=== PATIENT | male | born 1940 | race Caucasian/White ===

== ENCOUNTER 2018-08-02 18:33 | Observation (INO) ==
[2018-08-02] MEDS ORDERED: NITROGLYCERIN 2% OINTMENT 30GM TUBE EXT STA (18:47)
[2018-08-02] MEDS ORDERED: ASPIRIN CHEW 324 MG PO STA (18:47)
--- NOTE | 2018-08-02 18:57 | Emergency Department Note ---
Entered by Flory Ness acting as a scribe for Zi Soliman MD History of Present Illness General Chief complaint: Cardiac Assessment Stated complaint: CHEST PRESSURE, CARDIAC HX, DIABETIC Time Seen by Provider: 08/02/18 18:39 Source: patient and family () History of Present Illness Onset (ago): hour(s) (several ) Location: chest Radiation: non-radiation Pain Consistency: + other (worsening) Maximum Pain Intensity: 2 Current Pain Intensity: 1 Associated symptoms: + cough (productive ) and + shortness of breath; no diaphoresis and no nausea/vomiting Treatments prior to arrival: none The patient is a 78 year old male who presents to the Emergency Room with complaints of worsening chest pain that began several hours prior to arrival. He denies radiation of his pain, and rates his pain at a 1/10. The patient states that he is short of breath, but states that he is short of breath at baseline. Per the patient's , the patient has a productive cough at baseline, but states that this has been worse over the past several days. The patient denies nausea and sweating. The patient denies treatments prior to arrival. He states that he has a heart history and states that he has had 5 stents placed previously. The patient states that he takes aspirin regularly. Home Medications Home Medications Medication Instructions Recorded Confirmed Type Lactobacillus acidophilus 0 mg PO DAILY 08/02/18 08/02/18 History [Acidophilus] atorvastatin [Lipitor] 20 mg PO PM 08/02/18 08/02/18 History cefpodoxime 400 mg PO BID 08/02/18 08/02/18 History clopidogrel [Plavix] 75 mg PO DAILY 08/02/18 08/02/18 History famotidine 20 mg PO BID 08/02/18 08/02/18 History metoprolol succinate 50 mg PO DAILY 08/02/18 08/02/18 History metronidazole 500 mg PO TID 08/02/18 08/02/18 History multivitamin 1 tab PO QAM 08/02/18 08/02/18 History omega-3 acid ethyl esters [Lovaza] 1 cap PO BID 08/02/18 08/02/18 History ramipril 2.5 mg PO DAILY 08/02/18 08/02/18 History repaglinide 1 mg PO QAM 08/02/18 08/02/18 History Allergies Allergy/AdvReac Type Severity Reaction Status Date / Time No Known Allergies Allergy Unverified 08/02/18 19:46 Past Med/Surg History Medical History Diabetes (Chronic) Social History Feels Safe at Home: Yes Smoking Status: Former smoker Review of Systems See HPI for pertinent positives & negatives. and A total of 10 systems reviewed and were otherwise negative Physical Exam Vital Signs Vital Signs - 24 hr 08/02/18 18:37 08/02/18 18:45 08/02/18 18:50 Temperature 36.5 C Temperature Source Oral Sepsis Recent Fever Within 48 Hours No Sepsis Action Taken by Nursing No Action Required Pulse Rate 87 Pulse Rate [Right Finger] Pulse Rhythm Regular Pulse Strength Normal Respiratory Rate 20 Respiratory Effort / Characteristics Non-Labored Non-Labored Respiratory Depth Normal Normal Respiratory Pattern Regular Blood Pressure 132/85 Blood Pressure [Left Arm] Blood Pressure Mean 100 Blood Pressure Mean [Left Arm] Blood Pressure Position Sitting Blood Pressure Position [Left Arm] Pulse Oximetry 79 L 94 Oxygen Delivery Method Room Air Nasal Cannula Nasal Cannula Oxygen Flow Rate 4 3 08/02/18 19:12 08/02/18 19:13 Temperature Temperature Source Sepsis Recent Fever Within 48 Hours Sepsis Action Taken by Nursing Pulse Rate 71 Pulse Rate [Right Finger] 72 Pulse Rhythm Pulse Strength Respiratory Rate 18 18 Respiratory Effort / Characteristics Respiratory Depth Respiratory Pattern Blood Pressure 137/87 Blood Pressure [Left Arm] 137/87 Blood Pressure Mean 103 Blood Pressure Mean [Left Arm] 103 Blood Pressure Position Blood Pressure Position [Left Arm] Lying Pulse Oximetry 95 95 Oxygen Delivery Method Nasal Cannula Nasal Cannula Oxygen Flow Rate 3 3 GENERAL: Patient is in no acute distress. HEENT: No acute trauma, normocephalic atraumatic, mucous membranes moist, no nasal congestion, no scleral icterus. NECK: No stridor, no adenopathy, no meningismus, trachea is midline. LUNGS: Clear to auscultation bilaterally, no wheeze, no rhonchi, breath sounds equal. HEART: Without murmurs gallops or rubs, regular rate and rhythm. ABDOMEN: Soft, nontender, bowel sounds positive, no hernias, no peritonitis. EXTREMITIES: No cyanosis or edema, full range of motion of all the joints without pain or difficulty, no signs for acute trauma. NEUROLOGIC: Oriented x 3, no acute motor or sensory deficits, no focal weakness. SKIN: No rash, no jaundice, no diaphoresis. Course 1839: The patient was evaluated in room A9B, and a complete history and physical examination were performed. 1853: The patient's blood sugar is 88. 2000: I updated the patient and his . 2007: I discussed the case with Dr. Chaney Hospitalist who accepts the patient for further evaluation. Consultations Consultation #1: I discussed the case with Dr. [facility] who accepts the patient for further evaluation. Time: 20:08 Administered Medications Discontinued Medications Aspirin (Aspirin) 324 mg PO NOW STA Stop: 08/02/18 18:48 Last Admin: 08/02/18 19:02 Dose: 324 mg Documented by: [id number] Nitroglycerin (Nitro-Bid 2%) 1 inch EXT NOW STA Stop: 08/02/18 18:48 Last Admin: 08/02/18 19:02 Dose: 1 inch Documented by: [id number] Medical Decision Making Differential Diagnosis Differential diagnoses include angina, OH, CHF, pneumonia, bronchitis, reflux, anemia, electrolyte imbalance, aortic dissection, PE, and others were considered. Medical Records Attestation: I reviewed the patient's medical records. Home Medications Current Medication List: was personally reviewed by me Laboratory Data Attestation: I reviewed the patient's lab results. Result diagrams: 08/02/18 18:52 08/02/18 18:52 Lab Results 08/02/18 08/02/18 08/02/18 Range/Units 18:50 18:52 18:52 WBC 7.61 (4.8-10.8) K/uL RBC 4.83 (4.7-6.1) M/uL Hgb 16.6 (14.0-18.0) g/dL Hct 47.6 (42-52) % MCV 98.6 (80-100) fL MCH 34.4 H (25-34) pg MCHC 34.9 (32-36) g/dL RDW Std Deviation 48.6 H (36.4-46.3) fL RDW Coeff of Nat 13.5 (11.5-14.5) % Plt Count 168 (130-400) K/uL MPV 10.6 H (7.4-10.4) fL Immature Gran % (Auto) 0.3 % Neut % (Auto) 53.8 % Lymph % (Auto) 31.1 % Dewitt % (Auto) 12.5 % Eos % (Auto) 1.8 % Baso % (Auto) 0.5 % Immature Gran # (Auto) 0.02 (0.00-0.02) K/uL Neut # (Auto) 4.09 (1.4-6.5) K/uL Lymph # (Auto) 2.37 (1.2-3.4) K/uL Dewitt # (Auto) 0.95 H (0.11-0.59) K/uL Eos # (Auto) 0.14 (0-0.5) K/uL Baso # (Auto) 0.04 (0-0.2) K/uL PT (9.0-12.0) Seconds INR (0.9-1.1) APTT (21.0-31.0) Seconds PTT Ratio Sodium 140 (136-145) mmol/L Potassium 3.8 (3.5-5.1) mmol/L Chloride 106 (98-107) mmol/L Carbon Dioxide 28 (21-32) mmol/L Anion Gap 6.0 (3-11) BUN 10 (7-18) mg/dl Creatinine 0.67 (0.6-1.4) mg/dl Est Cr Clr Drug Dosing 92.7 ml/min Est GFR ( Amer) 106.7 Est GFR (Non-Af Amer) 92.0 BUN/Creatinine Ratio 14.6 (10-20) Glucose 93 (70-99) mg/dl POC Glucose 88 (70-99) Calcium 9.5 (8.5-10.1) mg/dl Magnesium 1.9 (1.8-2.4) mg/dl Total Bilirubin 0.9 (0.2-1) mg/dl AST 29 (15-37) U/L ALT 35 (12-78) U/L Alkaline Phosphatase 74 (45-117) U/L Troponin I < 0.015 (0-0.045) ng/ml Total Protein 7.8 (6.4-8.2) gm/dl Albumin 3.7 (3.4-5.0) gm/dl Globulin 4.1 H (2.5-4.0) gm/dl Albumin/Globulin Ratio 0.9 (0.9-2) Lipase 104 (73-393) U/L Specimen Hemolysis 08/02/18 Range/Units 18:52 WBC (4.8-10.8) K/uL RBC (4.7-6.1) M/uL Hgb (14.0-18.0) g/dL Hct (42-52) % MCV (80-100) fL MCH (25-34) pg MCHC (32-36) g/dL RDW Std Deviation (36.4-46.3) fL RDW Coeff of Nat (11.5-14.5) % Plt Count (130-400) K/uL MPV (7.4-10.4) fL Immature Gran % (Auto) % Neut % (Auto) % Lymph % (Auto) % Dewitt % (Auto) % Eos % (Auto) % Baso % (Auto) % Immature Gran # (Auto) (0.00-0.02) K/uL Neut # (Auto) (1.4-6.5) K/uL Lymph # (Auto) (1.2-3.4) K/uL Dewitt # (Auto) (0.11-0.59) K/uL Eos # (Auto) (0-0.5) K/uL Baso # (Auto) (0-0.2) K/uL PT 11.6 (9.0-12.0) Seconds INR 1.1 (0.9-1.1) APTT 25.9 (21.0-31.0) Seconds PTT Ratio 1.0 Sodium (136-145) mmol/L Potassium (3.5-5.1) mmol/L Chloride (98-107) mmol/L Carbon Dioxide (21-32) mmol/L Anion Gap (3-11) BUN (7-18) mg/dl Creatinine (0.6-1.4) mg/dl Est Cr Clr Drug Dosing ml/min Est GFR ( Amer) Est GFR (Non-Af Amer) BUN/Creatinine Ratio (10-20) Glucose (70-99) mg/dl POC Glucose (70-99) Calcium (8.5-10.1) mg/dl Magnesium (1.8-2.4) mg/dl Total Bilirubin (0.2-1) mg/dl AST (15-37) U/L ALT (12-78) U/L Alkaline Phosphatase (45-117) U/L Troponin I (0-0.045) ng/ml Total Protein (6.4-8.2) gm/dl Albumin (3.4-5.0) gm/dl Globulin (2.5-4.0) gm/dl Albumin/Globulin Ratio (0.9-2) Lipase (73-393) U/L Specimen Hemolysis Imaging Data Radiologist's Impression: Radiology results as stated below per my review and th e radiologist's interpretation: XR chest 1V portable HISTORY: Atypical Chest Pain COMPARISON: None. FINDINGS: The lungs are hyperexpanded with mild apical predominant emphysematous changes. No pneumothorax. No pleural effusions. The heart is normal in size. A coronary artery stent is noted. Increased markings at the lung bases likely represent vascular crowding from the emphysema. No focal lung consolidations to suggest pneumonia. No evidence for pulmonary edema. IMPRESSION: No acute process within the chest. Emphysema. Electronically signed by: Braden López M.D. 08/02/2018 7:22 PM ECG Data Attestation: I personally reviewed and interpreted this ECG as follows: Indication: chest pain Rate (beats per minute): 75 Rhythm: normal sinus Findings: no PVC and no ST elevation Blood Pressure Blood Pressure Findings: Normal blood pressure MDM Narrative There is no leukocytosis or concerning anemia. No significant electrolyte abnormality or kidney failure. No coagulopathy. No evidence for hepatitis or pancreatitis. EKG shows a sinus rhythm, no acute ischemia. Cardiac enzyme testing x1 is not consistent with acute cardiac injury. Chest film does not show mediastinal widening, no pneumonia or pneumothorax. Patient arrived hypoxic. He was placed on oxygen. He received oral aspirin and nitroglycerin paste. He is now completely pain-free with an adequate O2 saturation. I am concerned about angina as a cause for his presentation. His hypoxia may have triggered the angina. I do think further cardiac work-up is warranted. I did speak with case management. I talked to the patient. The on-call hospitalist was consulted. Impression & Plan Hypoxia, Precordial chest pain Discharge Plan Visit Data Chief Complaint: Cardiac Assessment Stated Complaint: CHEST PRESSURE, CARDIAC HX, DIABETIC ED Provider: Zi Soliman Discharge Problem: Hypoxia, Precordial chest pain Patient Disposition: Being Evaluated by Hospitalist Forms Stand Alone Forms: My [facility] Prescriptions Prescriptions: No Action multivitamin Tablet 1 tab PO QAM RF: 0 atorvastatin [Lipitor] 20 mg Tablet 20 mg PO PM RF: 0 cefpodoxime 200 mg Tablet 400 mg PO BID RF: 0 metoprolol succinate 50 mg Tablet Extended Release 24 Hr 50 mg PO DAILY RF: 0 metronidazole 500 mg Tablet 500 mg PO TID RF: 0 clopidogrel [Plavix] 75 mg Tablet 75 mg PO DAILY RF: 0 famotidine 20 mg Tablet 20 mg PO BID RF: 0 ramipril 2.5 mg Capsule 2.5 mg PO DAILY RF: 0 Lactobacillus acidophilus [Acidophilus] Capsule PO DAILY RF: 0 repaglinide 1 mg Tablet 1 mg PO QAM RF: 0 omega-3 acid ethyl esters [Lovaza] 1 gram Capsule 1 cap PO BID RF: 0 Referrals Referrals: MAEGAN THOMAS [Other] The scribe's documentation has been prepared under my direction and personally reviewed by me in its entirety. I confirm that the note above accurately reflects all work, treatment, procedures, and medical decision making performed by me.
[2018-08-02 19:08] LABS: Basophils # (auto) 0.04 K/uL (0-0.2); Basophils % (auto) 0.5 %; Eosinophils # (auto) 0.14 K/uL (0-0.5); Eosinophils % (auto) 1.8 %; Hematocrit (blood only) 47.6 % (42-52); Hemoglobin 16.6 g/dL (14.0-18.0); Immature Granulocytes # (auto) 0.02 K/uL (0.00-0.02); Immature Granulocytes % (auto) 0.3 %; Lymphocytes # (auto) 2.37 K/uL (1.2-3.4); Lymphocytes % (auto) 31.1 %; Mean Corpuscular Hgb Conc 34.9 g/dL (32-36); Mean Corpuscular Volume 98.6 fL (80-100); Mean Platelet Volume 10.6 fL (7.4-10.4); Monocytes # (auto) 0.95 K/uL (0.11-0.59); Monocytes % (auto) 12.5 %; Neutrophils # (auto) 4.09 K/uL (1.4-6.5); Neutrophils % (auto) 53.8 %; Platelet Count 168 K/uL (130-400); RDW Coefficient of Variation 13.5 % (11.5-14.5); RDW Standard Deviation 48.6 fL (36.4-46.3); Red Blood Count 4.83 M/uL (4.7-6.1); White Blood Count 7.61 K/uL (4.8-10.8)
--- NOTE | 2018-08-02 19:24 | XRay Report ---
XR chest 1V portable HISTORY: Atypical Chest Pain COMPARISON: None. FINDINGS: The lungs are hyperexpanded with mild apical predominant emphysematous changes. No pneumoth orax. No pleural effusions. The heart is normal in size. A coronary artery stent is noted. Increased markings at the lung bases likely represent vascular crowding from the emphysema. No focal lung conso lidations to suggest pneumonia. No evidence for pulmonary edema. IMPRESSION: No acute process within the chest. Emphysema. Electronically signed by: Braden López M.D. 08/02/2018 7:22 PM
[2018-08-02 19:25] LABS: INR 1.1 (0.9-1.1); Partial Thromboplastin Time 25.9 Seconds (21.0-31.0); Prothrombin Time 11.6 Seconds (9.0-12.0)
[2018-08-02 19:44] LABS: Alanine Aminotransferase 35 U/L (12-78); Albumin Globulin Ratio 0.9 (0.9-2); Albumin Level 3.7 gm/dl (3.4-5.0); Alkaline Phosphatase 74 U/L (45-117); Aspartate Aminotransferase 29 U/L (15-37); BUN Creatinine Ratio 14.6 (10-20); Bilirubin,Total 0.9 mg/dl (0.2-1); Blood Urea Nitrogen 10 mg/dl (7-18); Calcium 9.5 mg/dl (8.5-10.1); Carbon Dioxide 28 mmol/L (21-32); Chloride 106 mmol/L (98-107); Creatinine Clr Calc Pharmacy 92.7 ml/min; Est GFR (African American) 106.7; Globulin 4.1 gm/dl (2.5-4.0); Glucose 93 mg/dl (70-99); Magnesium 1.9 mg/dl (1.8-2.4); Potassium 3.8 mmol/L (3.5-5.1); Sodium 140 mmol/L (136-145); Total Protein 7.8 gm/dl (6.4-8.2); Troponin I < 0.015 ng/ml (0-0.045)
--- NOTE | 2018-08-02 21:56 | History & Physical Report ---
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 -Developed chest pain this afternoon while eating, found to be hypoxic at 79% upon arrival, pain resolved with supplemental O2 and nitro paste -History of multiple cardiac stents but disease has been well-controlled for past few years -Follows with cardiology regularly in [place] -Hypoxia likely contributing to chest pain -Initial troponin negative, EKG with NSR no acute ischemic change, CXR without acute process -Trend serial cardiac enzymes, check 2D echo, repeat EKG in am -Routine cardiology consult -NPO after midnight in case of stress test (2) Hypoxia: Initially 79% on room air, improved to 93% on 3L NC -History of requiring O2 in health care settings in the past, is not on home O2 -Likely to need 2 step prior to discharge home (3) CAD (coronary artery disease): H/o multiple stents -Continue aspirin, plavix, statin (4) HTN (hypertension): Normotensive. Continue home dose Toprol, Ramipril (5) Diabetes mellitus, type II: A1c unknown. Ordered for AM -Hold oral agent -SSI while in-patient -BSG AC HS (6) Abscess of liver: History of recurrent liver abscess for which he is taking Cefpodoxime and metronidazole -Afebrile, no leukocytosis, no GI symptoms -Continue home abx (7) GERD (gastroesophageal reflux disease): Continue H2 mana DVT Ppx: SQ Lovenox Code status: FULL per discussion with patient PCP: Maegan Bernstein ([place]) Dispo: Observation telemetry. Plan to return home once medically stable. Patient seen in collaboration with Dr. Galeano. Please see addendum. 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 Patient is from [place] and is visiting [place] so that his can attend a football seminar. While out to lunch today, patient took 2 bites of his salad and then developed central chest discomfort described as sharp and burning. Pain is intermittent and laste d less than a minute at a time and was associated with inability to catch his breath. states that he looked pale at this point in time as well. Patient thought that pain was due to gas pain but when it did not improve came to ED for further evaluation. Was found to be hypoxic at 79% on room air initially but improved to 93% on 3 L NC O2. Patient also given Nitropaste and chest pain resolved. Currently feeling much better. Denies any fever, chills, headache, lightheadedness, chest pain, palpitations, shortness of breath, nausea, vomiting, abdominal pain, dysuria, diarrhea, constipation or lower extremity swelling. Patient with history of CAD requiring multiple stents, but disease has been controlled for the last few years. Follows regularly with a legal billing clerk in [place] and is due for stress test and echo this coming November. Also has history of recurrent liver abscess for which he is taking Cefpodoxime and metronidazole. During 2016 rehab stay following hospitalization for initial liver abscess, patient was found to be hypoxic and required oxygen during stay. Since discharge, has wondered if patient has needed oxygen or not because he seems short of breath with exertion. Allergies Allergy/AdvReac Type Severity Reaction Status Date / Time No Known Allergies Allergy Unverified 08/02/18 19:46 Home Medications Home Medications Medication Instructions Recorded Confirmed Type Lactobacillus acidophilus 0 mg PO DAILY 08/02/18 08/02/18 History [Acidophilus] aspirin 81 mg PO DAILY 08/02/18 08/02/18 History atorvastatin [Lipitor] 20 mg PO PM 08/02/18 08/02/18 History cefpodoxime 400 mg PO BID 08/02/18 08/02/18 History clopidogrel [Plavix] 75 mg PO DAILY 08/02/18 08/02/18 History famotidine 20 mg PO BID 08/02/18 08/02/18 History metoprolol succinate 50 mg PO TIDM 08/02/18 08/02/18 History metronidazole 500 mg PO TID 08/02/18 08/02/18 History multivitamin 1 tab PO QAM 08/02/18 08/02/18 History omega-3 acid ethyl esters [Lovaza] 1 cap PO BID 08/02/18 08/02/18 History ramipril 2.5 mg PO DAILY 08/02/18 08/02/18 History repaglinide 1 mg PO QAM 08/02/18 08/02/18 History Past Med/Surg History Medical History GERD (gastroesophageal reflux disease) (Chronic) Abscess of liver (Chronic) Diabetes mellitus, type II (Chronic) CAD (coronary artery disease) (Chronic) HTN (hypertension) (Chronic) Surgical History History of coronary artery stent placement (Chronic) History of cholecystectomy (Chronic) Family History Other Diabetes Heart disease Social History Preferred Language: [place] Communication Ability: Effective 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 Physical Exam Physical Exam: General Appearance: WD/WN, no apparent distress, resting comfortably, becomes short of breath with exertion during exam Head: normocephalic, atraumatic Eyes: normal inspection, PERRL, EOMI ENT: hearing grossly normal, pharynx normal (moist mucous membranes) Neck: supple, no JVD, no adenopathy Respiratory/Chest: lungs clear to auscultation. No wheezes, rales or rhonci. No respiratory distress or accessory muscle use Cardiovascular: regular rate, rhythm, no murmur, normal peripheral pulses Abdomen/GI: normal bowel sounds, soft, non-tender to palpation Extremities/Musculoskelatal: normal inspection, no calf tenderness, normal capillary refill, no pedal edema Neurologic/Psych: alert, normal mood/affect, oriented x 3 Skin: normal color, warm/dry Results & Data Vital Signs (Past 12 Hours) Vital Signs Temp Pulse Pulse Resp BP BP Pulse Ox 08/02/18 20:47 93 05/16/19 20:46 93 08/02/18 20:20 74 16 125/84 93 08/02/18 19:13 72 18 137/87 95 08/02/18 19:12 71 18 137/87 95 08/02/18 18:45 94 08/02/18 18:37 36.5 C 87 20 132/85 79 L Laboratory Results Short CBC 08/02/18 Range/Units 18:52 WBC 7.61 (4.8-10.8) K/uL Hgb 16.6 (14.0-18.0) g/dL Hct 47.6 (42-52) % Plt Count 168 (130-400) K/uL BMP 08/02/18 18:52 Sodium 140 Potassium 3.8 Chloride 106 Carbon Dioxide 28 BUN 10 Creatinine 0.67 Glucose 93 Calcium 9.5 Cardiac Enzymes 08/02/18 Range/Units 18:52 Troponin I < 0.015 (0-0.045) ng/ml Liver Function 08/02/18 Range/Units 18:52 Total Bilirubin 0.9 (0.2-1) mg/dl AST 29 (15-37) U/L ALT 35 (12-78) U/L Alkaline Phosphatase 74 (45-117) U/L Albumin 3.7 (3.4-5.0) gm/dl Diagnostic Findings CXR: IMPRESSION: No acute process within the chest. Emphysema. Supervising Physician Co-Signing Physician Notes Care coordinated with Yuliya Aguero PA-C. Agree with above note. Patient seen and examined. Please refer to her notes for full details. Vital signs reviewed. Physical exam: General exam: Alert and oriented. Not in acute distress. CVS: S1 and S2 heard, regular rate and rhythm, no murmurs. RS: Clear to auscultation, no wheezing or crackles. ABD: Soft, bowel sounds present, nontender, no distention. CLAIMS ADJUDICATOR: Nonfocal. EXT: No edema, no erythema. Labs: Reviewed. Assessment and plan: 78M with hx of cad s/p stents, hx of tobacco abuse presents with chest pain and found to be hypoxic. Chest pain hx of Cad s/p stent improved with oxygen and nitro monitor in tele serial ce and echo npo after midnight cardio consult Hypoxia hx of smoking oxygen levels boderline as per patient- will order d dimer two step prior to discharge Other diagnosis and plan of care as per Yuliya Aguero PA-C. Diony gregg MD.
[2018-08-02] MEDS ORDERED: CARBOHYDRATES FOR HYPOGLYCEMIA PO PRN (23:32)
[2018-08-02] MEDS ORDERED: GLUCAGON FOR INJ 1 MG VIAL SQ PRN (23:32)
[2018-08-02] MEDS ORDERED: POLYETHYLENE (MIRALAX) 17 GM PACK PO PRN (23:32)
[2018-08-02] MEDS ORDERED: ONDANSETRON INJ 2 MG/ML 2 ML VIAL IV PRN (23:32)
[2018-08-02] MEDS ORDERED: DEXTROSE 50% 50 ML SYRINGE IV PRN (23:32)
[2018-08-02] MEDS ORDERED: GLUCOSE 10 TABS/TUBE PO PRN (23:32)
[2018-08-02] MEDS ORDERED: ACETAMINOPHEN 325 MG TAB PO PRN (23:32)
[2018-08-02] MEDS ORDERED: GLUCOSE 40% GEL 15 GM TUBE PO PRN (23:32)
[2018-08-03] MEDS: NITROGLYCERIN 2% OINTMENT 30GM TUBE EXT SCH ×2 (00:09→05:42)
[2018-08-03 01:02] LABS: Hematocrit (blood only) 43.6 % (42-52); Hemoglobin 15.7 g/dL (14.0-18.0); Mean Corpuscular Volume 97.1 fL (80-100); Platelet Count 164 K/uL (130-400); RDW Coefficient of Variation 13.4 % (11.5-14.5); RDW Standard Deviation 47.5 fL (36.4-46.3); Red Blood Count 4.49 M/uL (4.7-6.1); White Blood Count 7.92 K/uL (4.8-10.8)
[2018-08-03 01:22] LABS: BUN Creatinine Ratio 14.6 (10-20); Blood Urea Nitrogen 9 mg/dl (7-18); Carbon Dioxide 30 mmol/L (21-32); Chloride 105 mmol/L (98-107); Creatinine Clr Calc Pharmacy 93.3 ml/min; Est GFR (African American) 110.9; Est GFR (Non-African American) 95.7; Glucose 137 mg/dl (70-99); Sodium 138 mmol/L (136-145)
[2018-08-03 01:27] LABS: Chol HDL Ratio 2; Cholesterol 113 mg/dl (0-200); HDL Cholesterol 47 mg/dl; LDL Cholesterol Calculated 49 mg/dl; Triglycerides 85 mg/dl (0-150); Troponin I < 0.015 ng/ml (0-0.045); VLDL Cholesterol 17 mg/dl
[2018-08-03 06:19] LABS: Estimated Average Glucose 166 mg/dl; Hemoglobin A1C 7.4 % (4.5-5.6)
[2018-08-03] MEDS: METOPROLOL SUCC 50MG EXT REL TAB PO SCH ×2 (07:59→12:02)
[2018-08-03] MEDS: INSULIN ASPART 100 UNITS/ML 3 ML PEN SC SCH ×2 (08:00→13:13)
[2018-08-03] MEDS: metroNIDAZOLE 500 MG TAB PO SCH ×2 (08:00→12:37)
[2018-08-03] MEDS ORDERED: FAMOTIDINE 20 MG TAB PO SCH (09:00)
[2018-08-03] MEDS ORDERED: MULTIVITAMIN TAB PO SCH (09:00)
[2018-08-03] MEDS ORDERED: OMEGA-3 (PURIFIED FISH OIL) 1 GM CAP PO SCH (09:00)
[2018-08-03] MEDS ORDERED: CLOPIDOGREL BISULFATE 75 MG TAB PO SCH (09:00)
[2018-08-03] MEDS ORDERED: ENALAPRIL MALEATE 10 MG TAB PO SCH (09:00)
[2018-08-03] MEDS ORDERED: ENOXAPARIN INJ 40 MG/0.4 ML SYR SQ SCH (09:00)
[2018-08-03 09:19] LABS: D Dimer 580 ug/L FEU (0-500)
[2018-08-03] MEDS ORDERED: OPTIRAY 320 125ml IV PRN (10:23)
--- NOTE | 2018-08-03 10:40 | CT Scan Report ---
CT angio chest PE protocol CLINICAL HISTORY: 78 years-old Male presenting with shortness of breath, atypical chest pain, clinica l concern for pulmonary embolus. TECHNIQUE: Multidetector CT angiography of the chest was performed after administration of intravenou s contrast. 3-D volumetric and/or maximum intensity projection (MIP) images were subsequently reconst ructed for review. IV contrast: 123 mL of Optiray 320. One or more dose lowering techniques were used consistent with the principles of ALARA (as low as reasonably achievable), including automatic expos ure control, mA or kV adjustment to individual patient size, and/or use of iterative reconstruction. COMPARISON: Chest x-ray performed the previous day. CT DOSE (mGy.cm): The estimated cumulative dose is 520.24 mGy.cm. FINDINGS: Marketing Assistant topogram: Unremarkable. Pulmonary vasculature: The study is adequate for assessment of the pulmonary vascular tree. No filling defect within the pul monary arteries to suggest embolus. Main pulmonary artery is not enlarged. No flattening of the inter ventricular septum. No intracardiac filling defect. Reflux of contrast into the intrahepatic IVC. Remaining chest: Soft tissues: Normal thyroid and thoracic inlet. No axillary, supraclavicular, mediastinal, or hilar lymphadenopathy. Atherosclerosis of the aorta. Normal heart size. Coronary artery calcification. No p ericardial or pleural effusion. Cholecystectomy clips. Lungs and airways: No pneumothorax. Adherent debris along the right upper trachea. Remainder of the c entral airways patent. Pulmonary arteries mildly enlarged relative to adjacent bronchi. Moderate uppe r lobe predominant centrilobular emphysema. Minimal dependent changes likely atelectasis. Plaque-like thickening along the left major fissure pleural in location, measuring 13 x 4 mm (series 4 image 174 ), density of which is consistent with fat. Solid 3 mm nodule in the medial segment of the right midd le lobe (series 4 image 130). Few scattered calcified granulomata. Musculoskeletal: Degenerative changes of the spine. IMPRESSION: 1. No evidence of pulmonary embolus. No acute intrathoracic pathology. 2. Moderate emphysema. 3. Solid 3 mm right middle lobe nodule. Follow-up per Fleischner Society 2017 recommendations below. Summary of Fleischner Society 2017 Recommendations (H Jennifer et al. Guidelines for management of i ncidental pulmonary nodules detected on CT images: From the Fleischner Society 2017. Radiology 2017; 284: 228-243.) SOLID NODULES Single nodule; size < 6 mm * Low risk patients: No routine follow-up * High risk patients: Optional CT at 12 months Single nodule; size 6-8 mm * Low risk patients: CT at 6-12 months, then consider CT at 18-24 months * High risk patients: CT at 6-12 months, then at 18-24 months Single nodule; size > 8 mm * Either low or high risk patients: Considered CT at 3 months, PET/CT, or tissue sampling Multiple nodules; size < 6 mm * Low risk patients: No routine follow up * High risk patients: Optional CT at 12 months Multiple nodules; size 6-8 mm * Low risk patients: CT at 3-6 months, then consider CT at 18-24 months * High risk patients: CT at 3-6 months, then at 18-24 months Multiple nodules; size > 8 mm * Low risk patients: CT at 3-6 months, then consider at 18-24 months * High risk patients: CT at 3-6 months, then at 18-24 months SUBSOLID NODULES Single ground-glass nodule * Nodule size < 6 mm: No routine follow-up * Nodule size > or = 6 mm: CT at 6-12 months to confirm persistence, then CT every 2 years until 5 y ears Single part-solid nodule * Nodule size < 6 mm: No routine follow-up * Nodules size > or = 6 mm: CT at 3-6 months to confirm persistence. If unchanged and solid componen t remains < 6 mm, annual CT should be performed for 5 years Multiple nodules * Nodule size < 6 mm: CT at 3-6 months. If stable, consider CT at 2 and 4 years. * Nodules size > or = 6 mm: CT at 3-6 months. Subsequent management based on the most suspicious nod ule(s) NOTE: 1) These guidelines apply to incidental nodules. These guidelines do NOT apply to patients younger th an 35 years, immunocompromised patients, or patients with cancer. 2) Risk categories: * Low risk patients: Minimal or absent history of smoking and/or other known risk factors * High risk patients: History of smoking, exposure to other carcinogens, emphysema, fibrosis, upper lobe location, family history of lung cancer, etc. 3) If a nodule up to 8 mm is partly solid or is ground glass, further follow-up is required after 24 months to exclude possible slow growing adenocarcinoma. Electronically signed by: Artem Szymanski M.D. 08/03/2018 10:38 AM
[2018-08-03] MEDS ORDERED: TIOTROPIUM BROMIDE 5 PUFF/90 MCG INH INH SCH (11:30)
[2018-08-03] MEDS ORDERED: FLUTICASONE/SALMETEROL 100/50 (ADVAIR) 14 PUFF/1 INHALER INH SCH (11:30)
--- NOTE | 2018-08-03 12:00 | Consultation Report ---
DATE OF CONSULTATION: 08/03/2018 CARDIOLOGY CONSULTATION The patient seen and examined. Chart, medications, telemetry reviewed. The patient has limited current records but provides good history per patient description. REFERRING PHYSICIAN: Dr. Sepulveda. PRIMARY ESTHETICIAN/SPA COORDINATOR: Dr. Spangler of [place], [place]. REFERRING DIAGNOSIS: Atypical chest discomfort, hypoxia. HISTORY OF PRESENT ILLNESS: The patient is a complex patient with limited local records, was visiting [place] from the [place] area. His history is notable for coronary artery disease with multiple coronary interventions. He notes having received multiple coronary stents for angina pectoris and no prior myocardial infarction. These procedures were performed in [facility], [place], [place], and [facility] in [place], [place]. Most recent event several years past per the patient. The patient unable to distinctly describe when. His underlying issues include history of hypertension, on therapy; hyperlipidemia, on therapy; chronic hepatic abscess, on chronic antibiotic therapy; type 2 diabetes mellitus; and per patient occasional hypoxia. The patient notes having developed nausea and indigestion after a meal yesterday. Symptoms eased but recurred on attempt to eat again and was recommended by EMT at the restaurant where he was eating to present to the Emergency Room. He noted symptoms describing as a pressure sensation in his midepigastric area with some radiation to the lower chest. On initial presentation, he was found to be hypoxic with O2 saturation 79% on room air, improving with oxygen supplementation. EKGs and cardiac enzymes have been normal and undetectable since admission despite intermittent episodes of epigastric comfort. He anticipates followup with usual jointer submarine cable and has already been scheduled for a stress nuclear study and echocardiogram later this summer. He is deferring any further investigations at this time. ALLERGIES: None. MEDICATIONS: Prior to hospitalization were aspirin 81 mg per day, atorvastatin 20 mg day, clopidogrel 75 mg per day, famotidine 20 mg b.i.d., metoprolol succinate 50 t.i.d., metronidazole 500 mg t.i.d., cefpodoxime 400 mg b.i.d., multivitamin per day, omega-3 fish oils, ramipril 2.5 mg p.o. daily, repaglinide 1 mg q.a.m. PAST SURGICAL HISTORY: Notable for cholecystectomy. FAMILY HISTORY: Not specifically notable for heart disease. SOCIAL HISTORY: The patient has previously worked for [employer]. He is retired. He is a nonsmoker, nondrinker since 1989. He is moderately active about his home. PHYSICAL EXAMINATION: VITAL SIGNS: Currently on room air, oxygen saturation is 96%. Heart rate is 76, blood pressure is 103/70. Telemetry reveals a brief run of atrial tachycardia early this morning, but no further arrhythmias, not correlating with any symptoms or complaints. HEENT: Normocephalic, atraumatic. Nares without discharge. Throat was clear. NECK: Supple without thyromegaly or lymphadenopathy. There is no jugular venous distention or carotid bruits. Carotid pulses are 2/4 without delay. LUNGS: Reveal diminished breath sounds but are clear to the bases. CARDIOVASCULAR: Regular with normal S1, S2. There is no audible murmur, gallop, or rub. PMI is nondisplaced. ABDOMEN: Soft with mild tenderness in the epigastric area. There is no rebound or guarding. EXTREMITIES: Without cyanosis or clubbing. There is no peripheral edema. There are intact distal pulses. There is no palpable cord or Homans sign. DATA: EKG on serial testing reveals sinus rhythm with normal tracing. LABORATORY STUDIES: Troponin on 3 serial tests is nondetectable. White cell count 7.9, hemoglobin is 15.7, hematocrit is 43.6, platelet counts is 164. Sodium is 138, potassium is 4.0, chloride is 105, bicarb is 30, BUN is 9, creatinine 0.61, glucose is 137. Cholesterol was 113 with an LDL of 49, HDL 47. Chest CT done for elevated D-dimer demonstrates multiple pulmonary nodules, but no evidence of pulmonary embolus, moderate emphysematous changes. IMPRESSION: The patient is a 78-year-old male with history of coronary artery disease by description, full data not available, who presents with symptoms that were atypical for angina with epigastric pain and discomfort. Despite intermittent episodes, he had normal EKGs and nondetectable cardiac enzymes. I have discussed performing stress echocardiography to further define this. The patient defers any further stress testing to primary jointer submarine cable. This appears appropriate at this time. Would recommend ambulation if he remains asymptomatic with ambulation in the hallway. The patient to be discharged to have close clinical followup with primary jointer submarine cable, noting potential risks of doing so if recurrent symptoms or complaints would occur, he would need to seek evaluation immediately. The patient is agreeable to plan.
--- NOTE | 2018-08-03 12:46 | Hospitalist Progress Note ---
Date of Service August 03, 2018 Assessment & Plan (1) Precordial chest pain: This is a 78-year-old male with a PMH of CAD (s/p multiple stents), DM II, HTN, GERD and 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 -Developed chest pain this afternoon while eating, found to be hypoxic at 79% upon arrival, pain resolved with supplemental O2 and nitro paste -History of multiple cardiac stents but disease has been well-controlled for past few years -Follows with cardiology regularly in [place] -troponins negative x 3 on this admission and echocardiogram results with borderline global hypokineses of the left ventricle with Ejection Fraction 50 to 55% and grade 1 diastolic dysfunction -cardiology service Dr. Stockton offered stress testing to the patient but patient declined and prefer to follow up with his own outpatient clinic doctors -Continue aspirin, plavix, statin (2) Hypoxia: Emphysema (possible Chronic obstructive pulmonary disease) Pulmonary nodule (3 mm right middle lobe nedule) -Initially 79% on room air, improved to 93% on 3L NC -Based on 2 step testing, patient requires 2 liters/min of oxygen at rest and with ambulation; supplementary oxygen prescribed -patient had Chext X ray noting emphysema -Patient had elevated D-dimer of 530 -CTA chest did not find evidence of pulmonary embolism -CTA chest described moderate emphysema -CTA chest noted a solid 3 mm right middle lung nodule and given history of smoking in the past, patient may need CT scan at 12 months -patient given prescription of SPIRIVA (tiotropium bromide) and Advair (Flutica sone / Salmeterol) in case there is underlying COPD (Chronic obstructive pulmonary disease ) which explains for the hypoxia (3) CAD (coronary artery disease): history of coronary artery disease History of multiple stents -troponins negative x 3 on this admission and echocardiogram results with borderline global hypokineses of the left ventricle with Ejection Fraction 50 to 55% and grade 1 diastolic dysfunction -cardiology service Dr. Stockton offered stress testing to the patient but patient declined and prefer to follow up with his own outpatient clinic doctors -Continue aspirin, plavix, statin (4) HTN (hypertension): Normotensive. Continue home dose Toprol, Ramipril (5) Diabetes mellitus, type II: Type 2 diabetes mellitus without complication without fci use of insulin -HbA1c 7.4 -patient may continue home dose repaglinide at discharge and follow up with primary care doctor for further management of diabetes mellitus (6) Abscess of liver: History of recurrent liver abscess for which he is taking Cefpodoxime and metronidazole -Afebrile, no leukocytosis, no GI symptoms -Continue home antbiotics (7) GERD (gastroesophageal reflux disease): Continue H2 mana DVT Ppx: SQ Lovenox Code status: FULL per discussion with patient [place]CP: [place] Main Discharge Diagnosis Chest pain, history of coronary, artery disease, Hypoxia, Emphysema (possible Chronic obstructive pulmonary disease), Pulmonary nodule (3 mm right middle lobe nedule), Type 2 diabetes mellitus without complication without fci use of insulin Discharge Instructions Discharge with supplementary oxygen of 2 liters/min of oxygen at rest and with ambulation -CTA chest described moderate emphysema -CTA chest noted a solid 3 mm right middle lung nodule and given history of smoking in the past, patient may need CT scan at 12 months -patient given prescription of SPIRIVA (tiotropium bromide) and Advair (Fluticasone / Salmeterol) in case there is underlying COPD (Chronic obstructive pulmonary disease ) which explains for the hypoxia -troponins negative x 3 on this admission and echocardiogram results with borderline global hypokineses of the left ventricle with Ejection Fraction 50 to 55% and grade 1 diastolic dysfunction -cardiology service Dr. Stockton offered stress testing to the patient but patient declined and prefer to follow up with his own outpatient clinic doctors HbA1c 7.4 -patient may continue home dose repaglinide at discharge and follow up with primary care doctor for further management of diabetes mellitus Subjective Patient seen and examined at bedside. Based on 2 step testing, patient requires 2 liters/min of oxygen at rest and with ambulation. Patient denies current chest pain. no abdominal pain. no vomiting. no dizziness. no headache. no fever. we discussed at length about current hospital testing results and follow up plans with his primary care doctor Physical Exam Constitutional: WD/WN, vitals as above Eyes: PERRL, conjunctivae normal, anicteric sclerae EOM intact bilaterally ENMT: external ear and nose normal, oropharynx normal Neck: trachea midline, no thyromegaly normal visual inspection Respiratory: normal respiratory effort, lungs clear to auscultation Cardiovascular: RRR, no murmur, no edema Gastrointestinal (Abdomen): normal bowel sounds, soft, nontender, no hepatosplenomegaly Musculoskeletal: no cyanosis or clubbing, extremities motor strength 5/5 Head/Neck/Chest: normocephalic and head atraumatic Neurologic: PERRL, EOMI, accommodation nl, no face palsy, no dysarthria CN's II-XI intact bilaterally Psychiatric: A+Ox3, euthymic affect Results & Data Vital Signs (Past 12 Hours) Vital Signs Temp Pulse Pulse Pulse Pulse Pulse Pulse 08/03/18 11:04 36.8 C 88 08/03/18 11:00 84 90 90 82 08/03/18 08:11 63 08/03/18 08:00 36.4 C L 77 08/03/18 03:21 36.5 C 64 Resp Resp Resp Resp Resp BP Pulse Ox 08/03/18 11:04 18 103/71 96 08/03/18 11:00 18 20 20 18 08/03/18 08:11 08/03/18 08:00 19 129/82 93 08/03/18 03:21 20 118/64 97 Pulse Ox Pulse Ox Pulse Ox Pulse Ox 08/03/18 11:04 08/03/18 11:00 91 93 90 84 L 08/03/18 08:11 08/03/18 08:00 08/03/18 03:21
--- NOTE | 2018-08-03 13:04 | Discharge Summary ---
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 Patient is from [place] and is visiting [place] so that his can attend a football seminar. While out to lunch today, patient took 2 bites of his salad and then developed central chest discomfort described as sharp and burning. Pain is intermittent and lasted less than a minute at a time and was associated with inability to catch his breath. states that he looked pale at this point in time as well. Patient thought that pain was due to gas pain but when it did not improve came to ED for further evaluation. Was found to be hypoxic at 79% on room air initially but improved to 93% on 3 L NC O2. Patient also given Nitropaste and chest pain resolved. Currently feeling much better. Denies any fever, chills, headache, lightheadedness, chest pain, palpitations, shortness of breath, nausea, vomiting, abdominal pain, dysuria, diarrhea, constipation or lower extremity swelling. Patient with history of CAD requiring multiple stents, but disease has been controlled for the last few years. 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 Also has history of recurrent liver abscess for which he is taking Cefpodoxime and metronidazole. During 2016 rehab stay following hospitalization for initial liver abscess, patient was found to be hypoxic and required oxygen during stay. Since discharge, has wondered if patient has needed oxygen or not because he seems short of breath with exertion. Admission Exam Per Admitting Provider General Appearance: WD/WN, no apparent distress, resting comfortably, becomes short of breath with exertion during exam Head: normocephalic, atraumatic Eyes: normal inspection, PERRL, EOMI ENT: hearing grossly normal, pharynx normal (moist mucous membranes) Neck: supple, no JVD, no adenopathy Respiratory/Chest: lungs clear to auscultation. No wheezes, rales or rhonci. No respiratory distress or accessory muscle use Cardiovascular: regular rate, rhythm, no murmur, normal peripheral pulses Abdomen/GI: normal bowel sounds, soft, non-tender to palpation Extremities/Musculoskelatal: normal inspection, no calf tenderness, normal capillary refill, no pedal edema Neurologic/Psych: alert, normal mood/affect, oriented x 3 Skin: normal color, warm/dry Principal Diagnosis Chest pain, history of coronary, artery disease, Hypoxia, Emphysema (possible Chronic obstructive pulmonary disease), Pulmonary nodule (3 mm right middle lobe nedule), Type 2 diabetes mellitus without complication without 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 sales network engineer 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 of 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 Discharge Exam Constitutional WD/WN, vitals as above Eyes PERRL, conjunctivae normal, anicteric sclerae EOM intact bilaterally ENMT external ear and nose normal, oropharynx normal Neck trachea midline, no thyromegaly normal visual inspection Respiratory normal respiratory effort, lungs clear to auscultation Cardiovascular RRR, no murmur, no edema Gastrointestinal (Abdomen) normal bowel sounds, soft, nontender, no hepatosplenomegaly Musculoskeletal no cyanosis or clubbing, extremities motor strength 5/5 Head/Neck/Chest: normocephalic and head atraumatic Neurologic PERRL, EOMI, accommodation nl, no face palsy, no dysarthria CN's II-XI intact bilaterally Psychiatric A+Ox3, euthymic affect Discharge Data Allergies Allergy/AdvReac Type Severity Reaction Status Date / Time No Known Allergies Allergy Unverified 08/02/18 19:46 Consultations 08/02/18 19:59 ED Decision to Admit Stat 08/02/18 23:32 Consult Cardiology Routine 08/03/18 09:55 Consult Case Management - Discharge Planning Routine 08/03/18 12:35 Burn CD for patient Stat Ordered Studies 08/03/18 09:54 CT angio chest PE protocol Stat Hospital Course (1) Precordial chest pain: This is a 78-year-old male with a PMH of CAD (s/p multiple stents), DM II, HTN, GERD and 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 -Developed chest pain this afternoon while eating, found to be hypoxic at 79% upon arrival, pain resolved with supplemental O2 and nitro paste -History of multiple cardiac stents but disease has been well-controlled for past few years -Follows with cardiology regularly in [place] -troponins negative x 3 on this admission and echocardiogram results with borderline global hypokineses of the left ventricle with Ejection Fraction 50 to 55% and grade 1 diastolic dysfunction -cardiology service Dr. Stockton offered stress testing to the patient but patient declined and prefer to follow up with his own outpatient clinic doctors -Continue aspirin, plavix, statin (2) Hypoxia: Emphysema (possible Chronic obstructive pulmonary disease) Pulmonary nodule (3 mm right middle lobe nedule) -Initially 79% on room air, improved to 93% on 3L NC -Based on 2 step testing, patient requires 2 liters/min of oxygen at rest and with ambulation; supplementary oxygen prescribed -patient had Chext X ray noting emphysema -Patient had elevated D-dimer of 530 -CTA chest did not find evidence of pulmonary embolism -CTA chest described moderate emphysema -CTA chest noted a solid 3 mm right middle lung nodule and given history of smoking in the past, patient may need CT scan at 12 months -patient given prescription of SPIRIVA (tiotropium bromide) and Advair (Fluticasone / Salmeterol) in case there is underlying COPD (Chronic obstructive pulmonary disease ) which explains for the hypoxia (3) CAD (coronary artery disease): history of coronary artery disease History of multiple stents -troponins negative x 3 on this admission and echocardiogram results with borderline global hypokineses of the left ventricle with Ejection Fraction 50 to 55% and grade 1 diastolic dysfunction -cardiology service Dr. Stockton offered stress testing to the patient but patient declined and prefer to follow up with his own outpatient clinic doctors -Continue aspirin, plavix, statin (4) HTN (hypertension): Normotensive. Continue home dose Toprol, Ramipril (5) Diabetes mellitus, type II: Type 2 diabetes mellitus without complication without pre sales network engineer use of insulin -HbA1c 7.4 -patient may continue home dose repaglinide at discharge and follow up with primary care doctor for further management of diabetes mellitus (6) Abscess of liver: History of recurrent liver abscess for which he is taking Cefpodoxime and metronidazole -Afebrile, no leukocytosis, no GI symptoms -Continue home antbiotics (7) GERD (gastroesophageal reflux disease): Continue H2 mana DVT Ppx: SQ Lovenox Code status: FULL per discussion with patient [place]CP: [place]an [place] Main Discharge Diagnosis Chest pain, history of coronary, artery disease, Hypoxia, Emphysema (possible Chronic obstructive pulmonary disease), Pulmonary nodule (3 mm right middle lobe nedule), Type 2 diabetes mellitus without complication without longterm use of insulin Discharge Instructions Discharge with supplementary oxygen of 2 liters/min of oxygen at rest and with ambulation -CTA chest described moderate emphysema -CTA chest noted a solid 3 mm right middle lung nodule and given history of smoking in the past, patient may need CT scan at 12 months -patient given prescription of SPIRIVA (tiotropium bromide) and Advair (Fluticasone / Salmeterol) in case there is underlying COPD (Chronic obstructive pulmonary disease ) which explains for the hypoxia -troponins negative x 3 on this admission and echocardiogram results with borderline global hypokineses of the left ventricle with Ejection Fraction 50 to 55% and grade 1 diastolic dysfunction -cardiology service Dr. Stockton offered stress testing to the patient but patient declined and prefer to follow up with his own outpatient clinic doctors HbA1c 7.4 -patient may continue home dose repaglinide at discharge and follow up with primary care doctor for further management of diabetes mellitus Total Time Total Time Spent Total Time Spent (In Minutes): 40 minutes Total Time Includes: Examination of the Patient, Discharge Planning, Medication Reconciliation and Communication With Other Providers Discharge Plan Discharge Items Patient Disposition: Home - Self-Care Reason For Visit: CHEST PAIN,HYPOXIA Discharge Diagnosis: Chest pain, history of coronary, artery disease, Hypoxia, Emphysema (possible Chronic obstructive pulmonary disease), Pulmonary nodule (3 mm right middle lobe nedule), Type 2 diabetes mellitus without complication without longterm use of insulin Condition: Good Discharge Goals: Improve disease control Activity: Resume your previous activity Non-emergency contact: Primary Care Provider and Bag Machine Tender Call non-emergency contact if: you have any medication questions Follow-up/Referrals: Goran Bernstein MD [Primary Care Provider] - Diet: Regular Addtl Provider Instructions: Discharge with supplementary oxygen of 2 liters/min of oxygen at rest and with ambulation -CTA chest described moderate emphysema -CTA chest noted a solid 3 mm right middle lung nodule and given history of smoking in the past, patient may need CT scan at 12 months -patient given prescription of SPIRIVA (tiotropium bromide) and Advair (Fluticasone / Salmeterol) in case there is underlying COPD (Chronic obstructive pulmonary disease ) which explains for the hypoxia -troponins negative x 3 on this admission and echocardiogram results with borderline global hypokineses of the left ventricle with Ejection Fraction 50 to 55% and grade 1 diastolic dysfunction -cardiology service Dr. Stockton offered stress testing to the patient but patient declined and prefer to follow up with his own outpatient clinic doctors HbA1c 7.4 -patient may continue home dose repaglinide at discharge and follow up with primary care doctor for further management of diabetes mellitus Prescriptions: New Spiriva with HandiHaler 18 mcg Capsule, W/Inhalation Device 1 puff inhalation QAM 30 Days Qty: 1 RF: 0 fluticasone propion-salmeterol 100-50 mcg/dose blister with device 1 puffs INH BID 30 Days Qty: 14 RF: 0 Continued multivitamin Tablet 1 tab PO QAM RF: 0 atorvastatin [Lipitor] 20 mg Tablet 20 mg PO PM RF: 0 cefpodoxime 200 mg Tablet 400 mg PO BID RF: 0 metoprolol succinate 50 mg Tablet Extended Release 24 Hr 50 mg PO TIDM RF: 0 metronidazole 500 mg Tablet 500 mg PO TID RF: 0 clopidogrel [Plavix] 75 mg Tablet 75 mg PO DAILY RF: 0 famotidine 20 mg Tablet 20 mg PO BID RF: 0 ramipril 2.5 mg Capsule 2.5 mg PO DAILY RF: 0 Lactobacillus acidophilus [Acidophilus] Capsule PO DAILY RF: 0 repaglinide 1 mg Tablet 1 mg PO QAM RF: 0 omega-3 acid ethyl esters [Lovaza] 1 gram Capsule 1 cap PO BID RF: 0 aspirin 81 mg Tablet,Delayed Release (Dr/Ec) 81 mg PO DAILY RF: 0 Stand-Alone Forms: [facility]/Other Patient Handouts: Hyperglycemia Discharge Orders: Discharge Order (Routine); Ordered 08/03/18 Ordered By: Thomas Sepulveda Admission Data Admit Date/Time: 08/02/18 21:45 Attending Provider: Thomas Sepulveda Admit Provider: Diony Galeano Primary Care Provider: Goran Bernstein Other Providers: Diony Galeano ; Jaxson Fleming Service: Telemetry
[2018-08-03] MEDS ORDERED: ATORVASTATIN 20 MG TAB PO SCH (21:00)
== END 2018-08-03 15:04 | disposition home or self-care (01) ==
LOC: ED 18:33 → 2S 18:33